=== PATIENT | female | born 1985 | race Caucasian/White ===

== ENCOUNTER → 2017-05-07 | Outpatient (CLI) | payer BC ==
--- NOTE | 2017-05-07 16:48 | US ---
EXAMINATION TYPE: US abdomen complete DATE OF EXAM: 05/07/2017 COMPARISON: US CLINICAL HISTORY: Rt upper Quad Pain, R10.11. Pt states right side ABD pain EXAM MEASUREMENTS: Liver Length: 15.8 cm Gallbladder Wall: 0.2 cm CBD: 0.3 cm Spleen: 11.1 cm Right Kidney: 11.3 x 4.0 x 4.9 cm Left Kidney: 12.8 x 4.9 x 4.6 cm Pancreas: wnl Liver: wnl Gallbladder: wnl Evidence for sonographic Elena's sign: No CBD: wnl Spleen: wnl Right Kidney: wnl Left Kidney: wnl Upper IVC: wnl Abd Aorta: wnl No abnormality seen within ABD The liver is homogenous. The intrahepatic portion of the IVC and proximal abdominal aorta are within normal limits. There is no evidence of cholelithiasis. Common bile duct is unremarkable. The visu alized portions of the pancreas are homogenous. The spleen is unremarkable. Kidneys are symmetric a nd free of hydronephrosis. No renal lesions are seen. IMPRESSION: Negative complete abdominal sonogram. No gallstones or dilated ducts.
== END | disposition home or self-care (01) ==
LOC: RADUSWWP 16:18
PROVIDERS: ATTEND Family Medicine
DX: R10.11 Right upper quadrant pain (principal)
CPT/HCPCS: 76700

== ENCOUNTER 2017-06-09 06:11 | Day surgery (SDC) | payer BC ==
[2017-06-04 16:48] VITALS: BMI 25.2
--- NOTE | 2017-06-06 06:47 | P.HPOB ---
History of Present Illness H&P Date: 06/06/17 Chief Complaint: Multi parity desires permanent sterilization. This patient is a pleasant 31-year-old 4 para 4 female who presented to my office requesting permanent sterilization. Patient herself has 4 living children and is currently in a relationship where he has a child as well and they do not want any further children. She and I discussed various options for control and this is the method she has chosen. Patient is requesting laparoscopic bilateral fallopian tube cauterization. Past Medical History Past Medical History: Thyroid Disorder Additional Past Medical History / Comment(s): Patient has hypothyroidism. She' s had 4 spontaneous vaginal deliveries. History of Any Multi-Drug Resistant Organisms: None Reported Past Surgical History: Adenoidectomy Past Anesthesia/Blood Transfusion Reactions: No Reported Reaction Past Psychological History: No Psychological Hx Reported Smoking Status: Never smoker Past Alcohol Use History: None Reported Past Drug Use History: None Reported - Past Family History Father Family Medical History: No Reported History Medications and Allergies Home Medications Medication Instructions Recorded Confirmed Type Levothyroxine Sodium [Synthroid] 50 mcg PO DAILY 09/11/15 06/04/17 History Control(Unknown Name) 1 tab PO HS 06/04/17 History Allergies Allergy/AdvReac Type Severity Reaction Status Date / Time Sulfa (Sulfonamide Allergy Rash/Hives Verified 06/04/17 15:26 Antibiotics) Exam - OBG Physical Exam Abdomen: bowel sounds normal, no diffuse tenderness, no bruit present, no guarding noted, no hepatomegaly, no splenomegaly, no mass Vulva: both: normal Vagina: normal moisture, no discharge Cervix: no lesion, no discharge Uterus: normal size, normal contour Adnexa: both: normal Assessment and Plan Assessment: This is a pleasant 31-year-old 4 para 4 female who presents for laparoscopic bilateral fallopian tube cauterization for permanent sterilization. Patient I have discussed the surgery and she understands it is considered permanent however there is a failure rate of approximately 5-10 per thousand procedures done. She understands if she does become she has a 50% chance of an ectopic or tubal . Patient I have also discussed other options for control and she understands this is an elective procedure and other options exist. She understands the surgery and its risks including risks of infection, bleeding, possible injury to bowel, bladder, vessels, and/or other organs. All the patient's questions are answered and a written consent is obtained. (1) Family planning Status: Acute Code(s): Z30.09 - ENCOUNTER FOR OTH GENERAL CNSL AND ADVICE ON CONTRACEPTION SNOMED Code(s): 214761043
[~2017-06-09 06:11] MED LIST: DEXAMETHASONE SOD PHOSPHATE 10 MG/ML 1 ML VIAL IV ONE; LACTATED RINGERS 1,000 ML IV SCH; LIDOCAINE 1% 20 ML VIAL (10MG/ML) FOR IV START INTRADERMA PRN; MORPHINE SULFATE 2 MG/ML SYRINGE IV PRN; ONDANSETRON 4 MG/2 ML VIAL IVP ONE; Pre Op ABX Message 1 EACH MISC MISCELLANE ONE; SCOPOLAMINE 1.5MG/72HR PATCH TRANSDERM ONE
[2017-06-09] MEDS ORDERED: LIDOCAINE 1% INJ 10MG/ML (20 ML MDV) ONE (07:21)
[2017-06-09] MEDS ORDERED: SUCCINYLCHOLINE CHLORIDE 100 MG/5 ML SYR IV ONE (07:21)
[2017-06-09] MEDS ORDERED: MIDAZOLAM 2 MG/2 ML VIAL ONE (07:21)
[2017-06-09] MEDS ORDERED: GLYCOPYRROLATE 0.2 MG/ML 2 ML VIAL ONE (07:21)
[2017-06-09] MEDS ORDERED: KETOROLAC 30 MG/ML 1 ML VIAL ONE (07:21)
[2017-06-09] MEDS ORDERED: NEOSTIGMINE 1 MG/ML 10 ML VIAL ONE (07:21)
[2017-06-09] MEDS ORDERED: fentaNYL (PF) 50 MCG/ML 2 ML AMP ONE (07:21)
[2017-06-09] MEDS ORDERED: PROPOFOL 10 MG/ML 20 ML VIAL IV ONE (07:21)
[2017-06-09] MEDS ORDERED: ROCURONIUM BROMIDE 10 MG/ML 10 ML VIAL IV ONE (07:21)
[2017-06-09] MEDS ORDERED: BUPIVACAINE (PF) 0.5% 30 ML VIAL SQ ONE ×2 (07:42→07:54)
--- NOTE | 2017-06-09 08:07 | P.OP ---
Date of Procedure: 06/09/17 Preoperative Diagnosis: Multi parity desires permanent sterilization Postoperative Diagnosis: Same Procedure(s) Performed: Laparoscopic bilateral fallopian tube cauterization Anesthesia: ALISSAA Surgeon: Lester Banks Estimated Blood Loss (ml): 5 Urine output (ml): 10 Pathology: none sent Condition: stable Disposition: PACU Indications for Procedure: Please see dictated H&P for intimate details of this patient's admission. Brief summary this is a pleasant 31-year-old 4 para 4 female who is requesting permanent sterilization by laparoscopic tubal cauterization. Patient understands this procedure and the fact that it is permanent. She understands it does have a failure rate of approximately 5-10 per thousand procedures done. She also understands that laparoscopic surgery and apparently has risks including risks of infection, bleeding, possible injury bowel, bladder , vessels, and/or other organs. Patient understands that alternatives exist of the surgery. All the patient's questions are answered written consent is obtained. Operative Findings: This patient had a normal appearing pelvis. She did have a 4 cm functional cyst on the left ovary but otherwise Description of Procedure: This patient is taken to the operating room where she is laid in the supine position. She subsequent undergoes general endotracheal anesthesia without incident. With an adequate level of anesthesia she's placed in the dorsal lithotomy position. She has a vaginal perineal abdominal prep and drape. I first good on below placed a speculum into the vagina and grabbed the anterior lip of the cervix with an Allis clamp. A small acorn cannula is gently placed into the endocervix and attached to the Allis clamp. I then drain her bladder for 10 mL of clear urine and this attached to the Allis clamp. I then removed the speculum and go up above changed gloves. I make a 10 mm infraumbilical incision. Through this a 10 mm bladed lists optical trochars placed. With peritoneal placement confirmed peritoneum was then created to 12 mm of carbon dioxide gas. I visualize the pelvis all appears normal she does have a 4 cm functional cyst of the left ovary. Using bipolar cautery then grasped the left fallopian tube approximately 4 cm from its cornual insertion and a 3 cm segment of tube was completely cauterized by the volt meter with bipolar cautery. With this completed ago the right side in similar technique with similar results. Final inspection of the pelvis shows all be hemostatic. The lower trochars removed and good hemostasis is noted. Pneumoperitoneum was reduced. The upper trochars removed. Both incisions are closed with 4-0 Vicryl running fashion. Additional suture in the lower incision for hemostasis. Steri-Strips sterile dressing then applied. Half percent Marcaine or infiltrate both incisions for postoperative pain control. I dictated on below remove the Allis clamp and catheter and acorn cannula. With this the procedure is terminated. All counts are correct 3. There are no complications. Patient is awakened from anesthesia and taken recovery room satisfactory condition.
[2017-06-09 08:14] VITALS: TEMP 97.6
[2017-06-09] MEDS ORDERED: LACTATED RINGERS 1,000 ML IV ONE (09:04)
[2017-06-09 09:14] VITALS: RESP 18
[2017-06-09 10:31] VITALS: BP 134/77; PULSE 104
== END 2017-06-09 10:53 | disposition home or self-care (01) ==
LOC: OR 06:11
PROVIDERS: ATTEND Obstetrics & Gynecology
DX: Z30.2 Encounter for sterilization (principal); E03.9 Hypothyroidism, unspecified; N83.202 Unspecified ovarian cyst, left side; Z79.899 Other long term (current) drug therapy; Z79.3 Long term (current) use of hormonal contraceptives; Z88.2 Allergy status to sulfonamides; Z30.9 Encounter for contraceptive management, unspecified
CPT/HCPCS: 81025; 58670; J2250; J1100; J2710; J2001; J3010; J1885; J0330; J2704

== ENCOUNTER → 2020-10-31 | Outpatient (CLI) | payer OTHER ==
--- NOTE | 2020-10-31 12:07 | XR ---
EXAMINATION TYPE: XR hand complete bilateral DATE OF EXAM: 10/31/2020 COMPARISON: NONE HISTORY: Pain TECHNIQUE: Three views of each hand are submitted. FINDINGS: The osseous structures are intact. The joint spaces are preserved and there is no acute fracture or dislocation. Sclerotic density involving the distal left humerus compatible with bone island. IMPRESSION: 1. No definite acute fracture or dislocation if symptoms persist, follow-up study in 7 to 10 days wo uld be suggested
--- NOTE | 2020-10-31 12:09 | XR ---
EXAMINATION TYPE: XR wrist complete BILATERAL DATE OF EXAM: 10/31/2020 COMPARISON: NONE HISTORY: Pain TECHNIQUE: Four views submitted. FINDINGS: The osseous structures are intact. The joint spaces are preserved and there is no acute fracture or dislocation. IMPRESSION: 1. No definite acute fracture or dislocation if symptoms persist, follow-up study in 7 to 10 days wo uld be suggested
== END | disposition home or self-care (01) ==
LOC: RADXRMAIN 11:23
PROVIDERS: ATTEND Emergency Medicine
DX: M79.641 Pain in right hand (principal); M79.642 Pain in left hand

== ENCOUNTER → 2023-12-08 | Outpatient (CLI) | payer OTHER ==
--- NOTE | 2023-12-08 11:01 | XR ---
EXAMINATION TYPE: XR cervical spine comp DATE OF EXAM: 12/08/2023 COMPARISON: NONE HISTORY: Pain TECHNIQUE: Four views are submitted. FINDINGS: The odontoid is intact. There are no compression deformities. The prevertebral soft tissue structur es are within normal limits. Vertebral body height and disc interspace appears maintained. Neural fo ramina are patent. IMPRESSION: 1. No acute process. If concern for disc herniation correlate with MRI. [facility], , 12/08/2023 10:59 AM
== END | disposition home or self-care (01) ==
LOC: RADXRYALE 10:33
PROVIDERS: ATTEND Family Medicine
DX: M54.2 Cervicalgia (principal)
CPT/HCPCS: 72050